=== PATIENT | female | born 1980 | race Caucasian/White ===

== ENCOUNTER 2017-10-08 15:10 | Emergency (ER) | payer SELFPAY ==
--- NOTE | 2017-10-08 15:18 | PDOC ---
History of Present Illness - General History Source: Patient Exam Limitations: No Limitations - History of Present Illness Initial Comments: 10/08/17 16:00 The patient is a 37 year old female, with no significant past medical history, who presents to the emergency department for evaluation of her right 4th finger after her nail was detached just prior to her ED presentation. She states she grabbed the slightly open car door with the fingertips of her right hand when her hand slipped grabbing her right 4th nail. She reports a throbbing pain to her finger. She denies chest pain, shortness of breath, headache and dizziness. She denies fever, chills, nausea, vomit, diarrhea and constipation. She denies dysuria, frequency, urgency and hematuria. Allergies: NKDA <Tesha Fallon - Last Filed: 10/08/17 16:00> <Alhaji Shah - Last Filed: 10/08/17 17:26> - General Chief Complaint: Injury Stated Complaint: RT 4TH FINGER INJURY Time Seen by Provider: 10/08/17 15:13 Past History <Tesha Fallon - Last Filed: 10/08/17 16:00> - Past Medical History COPD: No Other medical history: PT DENIES - Suicide/Smoking/Psychosocial Hx Smoking History: Never smoked Hx Alcohol Use: No Drug/Substance Use Hx: No <Alhaji Shah - Last Filed: 10/08/17 17:26> - Past Medical History Allergies/Adverse Reactions: Allergies Allergy/AdvReac Type Severity Reaction Status Date / Time No Known Allergies Allergy Verified 10/08/17 15:12 Home Medications: Ambulatory Orders NK [No Known Home Medication] 10/08/17 Review of Systems - Review of Systems Able to Perform ROS?: Yes Comments:: 10/08/17 16:00 CONSTITUTIONAL: Absent: fever, chills, diaphoresis, generalized weakness, malaise, loss of appetite HEENT: Absent: rhinorrhea, nasal congestion, throat pain, throat swelling, difficulty swallowing, mouth swelling, ear pain, eye pain, visual Changes CARDIOVASCULAR: Absent: chest pain, syncope, palpitations, irregular heart rate, lightheadedness , peripheral edema RESPIRATORY: Absent: cough, shortness of breath, dyspnea with exertion, orthopnea, wheezing, stridor, hemoptysis GASTROINTESTINAL: Absent: abdominal pain, abdominal distension, nausea, vomiting, diarrhea, constipation, melena, hematochezia GENITOURINARY: Absent: dysuria, frequency, urgency, hesitancy, hematuria, flank pain, genital pain MUSCULOSKELETAL: Absent: myalgia, arthralgia, joint swelling SKIN: (+) nail injury to 4th digit of right hand. Absent: rash, itching, pallor HEMATOLOGIC/IMMUNOLOGIC: Absent: easy bleeding, easy bruising, lymphadenopathy, frequent infections ENDOCRINE: Absent: unexplained weight gain, unexplained weight loss, heat intolerance, cold intolerance NEUROLOGIC: Absent: headache, focal weakness or paresthesia, dizziness, unsteady gait, seizure, mental status changes, bladder or bowel incontinence PSYCHIATRIC: Absent: anxiety, depression, suicidal or homicidal ideation, hallucinations <Tesha Fallon - Last Filed: 10/08/17 16:00> *Physical Exam - Vital Signs Last Vital Signs Temp Pulse Resp BP Pulse Ox 98.3 F 73 18 136/84 99 10/08/17 15:10 10/08/17 15:10 10/08/17 15:10 10/08/17 15:10 10/08/17 15:10 - Physical Exam Comments: 10/08/17 16:01 GENERAL: Well developed, well nourished. Awake and alert. No acute distress. HEENT: Normocephalic, atraumatic. PERRLA, EOMI. No conjunctival pallor. Sclera are non- icteric. Moist mucous membranes. Oropharynx is clear. NECK: Supple. Full ROM. No JVD. Carotid pulses 2+ and symmetric, without bruits. No thyromegaly. No lymphadenopathy. CARDIOVASCULAR: Regular rate and rhythm. No murmurs, rubs, or gallops. Distal pulses are 2+ and symmetric. PULMONARY: No evidence of respiratory distress. Lungs clear to auscultation bilaterally. No wheezing, rales or rhonchi. ABDOMINAL: Soft. Non-tender. Non-distended. No rebound or guarding. No organomegaly. Normoactive bowel sounds. MUSCULOSKELETAL Normal range of motion at all joints. No bony deformities or tenderness. No CVA tenderness. EXTREMITIES: (+) Right hand: right 4th finger shows the nail is almost completely avulsed. By Hx, the nail was caught by the edge of the car door. There was no blunt trauma or crush injury that could have caused a Fx. The pt is definite about this and declines Xray for this reason. There is no defomirt of the fingertip other than the nail injury. There is no swelling or deformity of the proximal digit. Full flexion and extension are present in both finger joints. Remainder of extremities: No cyanosis. No clubbing. No edema. No calf tenderness. SKIN: Warm and dry. Normal capillary refill. No rashes. No jaundice. NEUROLOGICAL: Alert, awake, appropriate. Cranial nerves 2-12 intact. No motor deficits in the upper extremities and lower extremities. Normoreflexic in the upper and lower extremities. Normal speech. Gait is normal without ataxia. PSYCHIATRIC: Cooperative. Good eye contact. Appropriate mood and affect. <Tesha Fallon - Last Filed: 10/08/17 16:00> - Vital Signs Last Vital Signs Temp Pulse Resp BP Pulse Ox 98.3 F 73 18 136/84 99 10/08/17 15:10 10/08/17 15:10 10/08/17 15:10 10/08/17 15:10 10/08/17 15:10 <Alhaji Shah - Last Filed: 10/08/17 17:26> Medical Decision Making - Medical Decision Making 10/08/17 17:25 Procedure note: Removal of avulsed fingernail Betadine prep. Scrubbed with normal saline. Digital block 1% lidocaine plain with good anesthesia Male was gently from underlying tissue. It was attached only at the proximal edge Underlying nailbed was intact, without lacerations. Scrubbed and irrigated gently with saline. Nail was trimmed and replaced for wound covering. Xeroform wrap and tube gauze dressing were applied. Patient was completely comfortable, experiencing no pain, fingertip motion was intact, and there was no erythema or edema of the distal pulp. To follow-up with Dr. Galvan as directed. Return to ER if there is sign of infection <Alhaji Shah - Last Filed: 10/08/17 17:26> *DC/Admit/Observation/Transfer - Attestations Scribe Attestion: 10/08/17 16:02 Documentation prepared by Tesah Fallon, acting as medical records custodian for Alhaji Keenan MD <Tesha Fallon - Last Filed: 10/08/17 16:00> - Discharge Dispostion Admit: No <Alhaji Shah - Last Filed: 10/08/17 17:26> Diagnosis at time of Disposition: Avulsion of fingernail Qualifiers: Encounter type: initial encounter Qualified Code(s): S61.309A - Unspecified open wound of unspecified finger with damage to nail, initial encounter - Discharge Dispostion Disposition: HOME Condition at time of disposition: Improved - Referrals Referrals: Desean Galvan MD [Staff Physician] - - Patient Instructions Printed Discharge Instructions: DI for Nail Avulsion Injury Additional Instructions: Keep clean and dry. Rest and elevate. Change dressing in 3 days. Recheck immediately if there is sign of infection. Otherwise continue dressings with antibiotic ointment until healed. - Post Discharge Activity Forms/Work/School Notes: Back to Work
[2017-10-08 15:31] VITALS: BP 136/84; PULSE 73; TEMP 98.3; BMI 25.2
[2017-10-08] MEDS ORDERED: LIDOCAINE HCL 1%, 10 MG/ML (20ML VIAL) ONE (15:40)
== END 2017-10-08 17:25 | disposition home or self-care (01) ==
LOC: FER 15:10
PROC: 0HDQXZZ Extraction of Finger Nail, External Approach (ICD-10-PCS; principal; 2017-10-08)
DX: S61.304A Unspecified open wound of right ring finger with damage to nail, initial encounter (principal); X58.XXXA Exposure to other specified factors, initial encounter; Y93.89 Activity, other specified; Y92.89 Other specified places as the place of occurrence of the external cause
CPT/HCPCS: 99282-25